=== PATIENT | female | born 1960 | race Two or more races ===

== ENCOUNTER 2022-01-09 11:06 | Emergency (ER) | payer OTHER ==
[2022-01-09 11:10] VITALS: BP 150/77; PULSE 64; RESP 18; TEMP 98.4; BMI 32.1
[2022-01-09] MEDS ORDERED: ACETAMINOPHEN 1000 MG/100 ML BAG IVPB ONE (12:06)
[2022-01-09] MEDS ORDERED: SODIUM CHLORIDE 0.9% 500 ML INFUS.BAG IV ONE (12:06)
[2022-01-09] MEDS ORDERED: METOCLOPRAMIDE HCL INJECTION 10 MG/2 ML VIAL IVPUSH ONE (12:06)
[2022-01-09] MEDS ORDERED: MECLIZINE HCL 25 MG TABLET (FP) PO ONE (12:06)
[2022-01-09] MEDS ORDERED: MECLIZINE HCL 25 MG TABLET (FP) ONE (12:12)
[2022-01-09] MEDS ORDERED: METOCLOPRAMIDE HCL INJECTION 10 MG/2 ML VIAL ONE (12:12)
[2022-01-09] MEDS ORDERED: ACETAMINOPHEN INJECTION 100 ML IVPB ONE (12:12)
[2022-01-09 13:19] LABS: BASO % 0.4 % (0-2.0); EOS % 1.1 % (0-4.5); HEMATOCRIT 37.9 % (32.4-45.2); HEMOGLOBIN 13.3 GM/dL (10.7-15.3); LYMPH % 48.6 % (8-40); MEAN CELL VOLUME 85.7 fl (80-96); MONO % 5.8 % (3.8-10.2); NEUT % 44.1 % (42.8-82.8); PLATELET COUNT 146 10^3/uL (134-434); RBC 4.43 M/mm3 (3.60-5.2); RDW 13.7 % (11.6-15.6); WHITE BLOOD COUNT 5.8 K/mm3 (4.0-10.0)
[2022-01-09 13:30] LABS: VENOUS BASE EXCESS -1.7 mmol/L (-2-2); VENOUS O2 SATURATION 86.6 % (70-80); VENOUS PCO2 43.5 mmHg (38-52); VENOUS PH 7.358 (7.310-7.410)
[2022-01-09 13:56] LABS: ERYTHROCYTE SEDIMENTATION RATE 16 mm/hr (0-30)
[2022-01-09 14:02] LABS: CHLORIDE 103 mmol/L (98-107); SODIUM 137 mmol/L (136-145)
[2022-01-09 14:04] LABS: BLOOD UREA NITROGEN 10.3 mg/dL (7-18); CALCIUM 8.8 mg/dL (8.5-10.1)
[2022-01-09 14:05] LABS: ALBUMIN 3.8 g/dl (3.4-5.0); ANION GAP 9 MMOL/L (8-16); CO2 25 mmol/L (21-32); GLUCOSE,RANDOM 254 mg/dL (74-106)
[2022-01-09 14:07] LABS: SGPT/ALT 91 U/L (13-61)
[2022-01-09 14:08] LABS: CREATININE 0.5 mg/dL (0.55-1.3); SGOT/AST 72 U/L (15-37)
[2022-01-09 14:09] LABS: BILIRUBIN,TOTAL 0.4 mg/dL (0.2-1); TOT PROT 7.7 g/dl (6.4-8.2)
[2022-01-09 14:10] LABS: ALK PHOS 117 U/L (45-117)
[2022-01-09 16:20] LABS: URINE APPEARANCE CLEAR; URINE BILIRUBIN NEGATIVE (NEGATIVE); URINE COLOR YELLOW; URINE GLUCOSE (UA) 1+ (NEGATIVE); URINE KETONE NEGATIVE (NEGATIVE); URINE LEUK ESTERASE NEGATIVE (NEGATIVE); URINE NITRITE NEGATIVE (NEGATIVE); URINE PROTEIN NEGATIVE (NEGATIVE); URINE UROBILINOGEN 0.2 mg/dL (0.2-1.0)
== END 2022-01-09 16:10 | disposition home or self-care (01) ==
LOC: JER 11:06
PROC: 3E0333Z Introduction of Anti-inflammatory into Peripheral Vein, Percutaneous Approach (ICD-10-PCS; principal; 2022-01-09)
DX: R51.9 Headache, unspecified (principal)
CPT/HCPCS: 0241U-QW; 36415; 70450-TC; 80053; 81003; 82010; 82803; 82962; 84484; 85025; 85651; 86140; 87086; 87186; 93005; 93010; 99285-25